=== PATIENT | male | born 1940 | race Caucasian/White ===

== ENCOUNTER 2019-03-29 17:43 | Inpatient (IN) | payer MEDICARE ==
[2019-03-29 20:34] VITALS: BMI 25.2
[2019-03-29] MEDS ORDERED: Acetaminophen 325 MG TAB PO PRN (21:04)
[2019-03-29] MEDS ORDERED: Albuterol Sulfate 2.5 mg/3 ml Neb NEB PRN (21:05)
[2019-03-29] MEDS ORDERED: Senokot S 8.6-50 MG TAB PO PRN (21:22)
[2019-03-29] MEDS ORDERED: PROVENTIL INH PRN ×2 (21:23→21:24)
[2019-03-29] MEDS: Doxycycline 100 MG CAP PO SCH (21:29)
[2019-03-29] MEDS: Atorvastatin Calcium 20 MG TAB PO SCH (21:29)
[2019-03-29] MEDS ORDERED: HYDROcodone/Acetaminophen 5/325 mg Tablet PO PRN (21:30)
[2019-03-29] MEDS ORDERED: hydrOXYzine Pamoate 25 mg Capsule PO PRN (21:31)
[2019-03-29] MEDS ORDERED: Rivaroxaban 10 MG TAB PO SCH (22:00)
[2019-03-29] MEDS: Budesonide 0.5 MG/2 ML NEB NEB SCH (22:24)
[2019-03-30] MEDS ORDERED: predniSONE 20 MG TAB PO SCH (08:00)
[2019-03-30] MEDS: Multivitamin W/ Minerals 1 TAB PO SCH (08:45)
[2019-03-30] MEDS: Doxycycline 100 MG CAP PO SCH ×2 (08:45→22:43)
[2019-03-30] MEDS: Cefdinir 300 MG CAP PO SCH (08:45)
[2019-03-30] MEDS: Potassium Chloride 10 MEQ TAB PO SCH ×2 (08:45→17:18)
[2019-03-30] MEDS: Finasteride 5 MG TAB PO SCH (08:45)
[2019-03-30] MEDS: Furosemide 40 MG TAB PO SCH (08:47)
[2019-03-30] MEDS ORDERED: Arformoterol 15 MCG/2 ML NEB NEB SCH (09:00)
[2019-03-30] MEDS: Budesonide 0.5 MG/2 ML NEB NEB SCH ×2 (09:28→22:48)
--- NOTE | 2019-03-30 10:58 | PRG ---
DATE OF SERVICE: SUBJECTIVE: The patient feels the same with stable dyspnea on minimal exertion but not at rest. Main complaint of inability to sleep last night and wished him to be transferred to a private room. Is having no chest pain or palpitations. Decreasing cough and sputum production. No lightheadedness or dizziness. OBJECTIVE: VITAL SIGNS: Temperature 97.1, pulse 92, respirations 22, O2 sats 93% on 4 L, and blood pressure 139/62. LUNGS: Show diffuse rhonchi with rare wheezes, decreased breath sounds. CARDIAC: Shows regular rhythm. No gallops or murmurs. ABDOMEN: Soft, nontender. SKIN/EXTREMITIES: Showed no edema, clubbing, or cyanosis. NEUROLOGIC: Intact. ASSESSMENT: 1. Severe chronic obstructive pulmonary disease with exacerbation, appears to be slowly improving on oral steroid taper, oral antibiotics and routine schedule nebulizers with DuoNeb. 2. History of multifocal atrial tachycardia with no evidence of exacerbation or symptomatology at this time. 3. History of pulmonary embolus, on full anticoagulation. 4. History of benign prostatic hyperplasia with no symptoms, on finasteride. PLAN: Start PT/OT when available. Continue routine steroid taper and oral antibiotics and chronic nebulizer treatments. monitor and need to transfer back to intensive unit as the patient is a full code and is on maximum non-ICU medications. Job ID: [id number]
--- NOTE | 2019-03-30 10:58 | HP ---
HISTORY OF PRESENT ILLNESS: The patient is an unfortunate 78-year-old white male with a long history of severe end-stage COPD and chronic respiratory failure, on 4 L home oxygen continually at home, increased to 5 L with any exercise, who presented to [facility] approximately 5 days ago with a 2-week history of increasing shortness of breath, sputum production of green phlegm, and chest pain. He was admitted with an exacerbation of his COPD, started on IV steroids, IV antibiotics, and regular handheld nebulizers with bronchodilators. He was seen by Pulmonary and by Cardiology as he was found to have possible atrial fib, but was later determined to be multifocal atrial tachycardia related to COPD, and he gradually improved and was transferred to the Swing Bed for further steroid taper, pulmonary toilet, and physical conditioning. The patient now is sitting up in the bed, states that he has no dyspnea at rest, but was unable to sleep last night, possibly due to his steroids, possibly due to his dyspnea. Having no chest pain or palpitation. Is having decreasing sputum production and wheezing. Is requesting routine DuoNebs every 4 hours as the Brovana did not appear to be holding him. He is on Omnicef and doxycycline antibiotics and is also on furosemide 40 mg daily. PAST MEDICAL HISTORY: Positive for the above-mentioned COPD, history of pulmonary embolism, benign prostatic hypertrophy, hypertension, prostate cancer, hyperlipidemia, chronic atrial fibrillation, hyperlipidemia. PAST SURGICAL HISTORY: Positive for lumbar laminectomy, bilateral knee surgery. ALLERGIES: HE IS ALLERGIC TO PENICILLIN, HYDROCHLOROTHIAZIDE. ADMISSION MEDICATIONS: Include 1. Xarelto 20 mg daily. 2. Prednisone taper, now on 40 mg daily. 3. Potassium chloride 10 mEq twice daily. 4. Protonix 40 daily. 5. Handheld nebulizers with DuoNeb p.r.n. every 4 hours. 6. Furosemide 40 daily. 7. Proscar 5 daily. 8. Doxycycline 100 twice daily. 9. Diltiazem 180 mg daily. 10. Omnicef 600 mg daily. 11. Pulmicort 0.5 twice daily. 12. Atorvastatin 20 nightly. 13. Tylenol as needed. SOCIAL HISTORY: He is a full code. He lives with his family. Former smoker; nonsmoker at this time. Nondrinker. FAMILY MEDICAL HISTORY: Positive for father dying of an SC, mother of cancer, and brother of an SC. Sister of COPD. REVIEW OF SYSTEMS: HEENT: Denies any headaches, dizziness, change in vision or hearing, hoarseness, or dysphagia. PULMONARY: Has chronic cough usually not productive of sputum, has dyspnea on minimal exertion, occasionally at rest. Has occasional chest pain. Has recurrent wheezing. CARDIOVASCULAR: Denies any chest pain. Does have occasional palpitations or syncope or dizziness. GASTROINTESTINAL: He denies nausea, vomiting, diarrhea, constipation, or abdominal pain. GENITOURINARY: Denies dysuria, hematuria, or nocturia but does have a decreased stream. MUSCULOSKELETAL: Denies stiffness, swelling in joints or extremities. PHYSICAL EXAMINATION: GENERAL: The patient is an elderly white male, sitting in the bed on oxygen, in mild respiratory distress while talking, who is oriented x3 and cooperative, alert, and lucid. VITAL SIGNS: Show him to have temperature 97.3, pulse 86, respirations 20, O2 sats 95% on 4 L, and blood pressure 152/66. HEENT: Pupils are equal, round, and reactive to light and accommodation. Sclerae anicteric. Conjunctivae pale. Oral mucous membranes well hydrated. NECK: Supple. JVP is not elevated. LUNGS: Show markedly decreased breath sounds with a few diffuse rhonchi with no wheezes. CARDIAC: Shows regular rhythm with occasional extrasystoles. PMI on the 5th intercostal space, midclavicular line. ABDOMEN: Soft, nontender with no masses or organomegaly. SKIN/EXTREMITIES: Displayed no edema, clubbing, or cyanosis. NEUROLOGIC: Showed no focal findings. LABORATORY DATA: Show sodium 139, potassium 3.7, chloride 94, bicarb 37, BUN 24, creatinine 0.92, glucose 147, calcium 10.0. White count 5900, hematocrit 40, hemoglobin 12.7. ASSESSMENT: 1. An 78-year-old white male with a history of end-stage chronic obstructive pulmonary disease with dyspnea on minimal exertion at baseline, it would present with dyspnea at rest with an exacerbation who had responded to IV steroids and antibiotics, appears to be improving, although still dyspneic on minimal exertion at this time. He also has a history of multifocal atrial tachycardia versus atrial fibrillation, which is treated with diltiazem. 2. History of pulmonary embolus in the past, prevented with Xarelto. 3. Benign prostatic hypertrophy, stable on finasteride. PLAN: 1. Continue PT/OT. 2. Continue 4 L oxygen. 3. Continue steroid tapers. 4. Continue doxycycline and Omnicef. 5. Continue routine DuoNebs q.4 hours and budesonide 0.5 twice daily. 6. Continue full code status at the patient's request. Job ID: [id number]
[2019-03-30] MEDS: Rivaroxaban 10 MG TAB PO SCH (17:17)
[2019-03-30] MEDS: Atorvastatin Calcium 20 MG TAB PO SCH (22:43)
[2019-03-31] MEDS ORDERED: Albuterol Sulfate 2.5 mg/0.5 ml Neb ONE (06:10)
[2019-03-31] MEDS ORDERED: Albuterol Sulfate 2.5 mg/3 ml Neb ONE (06:13)
[2019-03-31 08:20] LABS: #Eosinphils 0.1 thou/uL (0.0-0.7); #Lymphocytes 1.1 thou/uL (1.20-3.40); #Monocytes 1.1 thou/uL (0.11-0.59); #Neutrophils 8.2 thou/uL (1.40-6.50); %Basophils 0.3 % (0.0-1.0); %Eosinophils 0.7 % (0.0-10.0); %Lymphocytes 10.3 % (21.0-51.0); %Monocytes 10.1 % (0.0-10.0); %Neutrophils 78.6 % (42.0-75.0); Hemoglobin 11.9 g/dL (14.0-18.0); Mean Corpuscular HGB CONC 31.2 g/dL (32.0-36.0); Mean Corpuscular Hemoglobin 26.6 pg (27.0-31.0); Mean Corpuscular Volume 85.1 fL (78.0-98.0); Mean Platelet Volume 6.1 fL (7.4-10.4); Platelet Count 343 thou/uL (130-400); RBC Distribution Width 14.6 % (11.5-14.5); Red Blood Cell (RBC) Count 4.46 mill/uL (4.70-6.10); White Blood Cell (WBC) Count 10.5 thou/uL (4.8-10.8)
[2019-03-31 08:40] LABS: ALT (SGPT) 19 U/L (8-55); AST (SGOT) 21 U/L (5-34); Albumin 3.4 g/dL (3.4-4.8); Alkaline Phosphatase 60 U/L (40-150); BUN (Urea Nitrogen) 28 mg/dL (8.4-25.7); Bilirubin, Total 0.3 mg/dL (0.2-1.2); Calc. Creatinine Clearance 89 mL/min (70-130); Calcium 9.1 mg/dL (7.8-10.44); Estimated GFR-MDRD Greater than 90; Globulin 2.2 g/dL (2.4-3.5); Glucose 103 mg/dL (83-110); Protein, Total 5.6 g/dL (5.8-8.1)
[2019-03-31 08:44] LABS: Chloride 91 mmol/L (98-107); Potassium 3.8 mmol/L (3.5-5.1); Sodium 142 mmol/L (136-145)
[2019-03-31] MEDS: Finasteride 5 MG TAB PO SCH (09:04)
[2019-03-31] MEDS: Cefdinir 300 MG CAP PO SCH (09:04)
[2019-03-31] MEDS: Budesonide 0.5 MG/2 ML NEB NEB SCH ×2 (09:04→20:37)
[2019-03-31] MEDS: predniSONE 20 MG TAB PO SCH (09:05)
[2019-03-31] MEDS: Potassium Chloride 10 MEQ TAB PO SCH ×2 (09:06→17:22)
[2019-03-31] MEDS: Furosemide 40 MG TAB PO SCH (09:06)
[2019-03-31] MEDS: Multivitamin W/ Minerals 1 TAB PO SCH (09:07)
[2019-03-31 09:24] LABS: Carbon Dioxide 39 mmol/L (23-31)
[2019-03-31 09:25] LABS: Anion Gap 16 mmol/L (10-20)
[2019-03-31] MEDS: Rivaroxaban 10 MG TAB PO SCH (17:22)
[2019-03-31] MEDS: Atorvastatin Calcium 20 MG TAB PO SCH (20:36)
--- NOTE | 2019-03-31 22:06 | PRG ---
DATE OF SERVICE: 03/31/[address] Lauren Diana. SUBJECTIVE: The patient is an 78-year-old white male with severe COPD, multifocal atrial tachycardia, who has been admitted to [facility] unit for his physical therapy after an exacerbation of COPD. He is doing much better, tolerating his therapy well, and is enjoying his private room. He has had no further palpitations. He is having decreasing dyspnea, cough, and sputum production on his DuoNeb. OBJECTIVE: VITAL SIGNS: Show temperature is 97.9, pulse 76, respirations 22, O2 sats 97% on room air, blood pressure is 128/61. LUNGS: Show decreased breath sounds with few diffuse rhonchi. CARDIAC: Shows regular rhythm with occasional extrasystole. ABDOMEN: Soft and nontender. No masses or organomegaly. SKIN/EXTREMITIES: Show no edema, clubbing, or cyanosis. LABORATORY DATA: White count is 10,500, hematocrit 38, hemoglobin 11. Sodium is 142, potassium 3.8, chloride 91, bicarb 39, BUN is 28, creatinine 0.79, globulin 2.2. ASSESSMENT: 1. Severe chronic obstructive pulmonary disease with resolving exacerbation, on steroid taper, bronchodilators, and oral antibiotics. 2. History of multifocal atrial tachycardia, no recurrence. 3. History of pulmonary embolus, no recurrence, on full anticoagulation. 4. Benign prostatic hypertrophy, stable with no symptoms, on finasteride. PLAN: 1. Continue PT/OT. Continue handheld nebulizers with DuoNeb. 2. Continue to monitor for recurrent multifocal tachycardia. 3. Continue to monitor closely for deterioration as the patient is on maximum medications. Job ID: [id number]
[2019-04-01] MEDS: Budesonide 0.5 MG/2 ML NEB NEB SCH ×2 (08:46→20:20)
[2019-04-01] MEDS: Potassium Chloride 10 MEQ TAB PO SCH ×2 (08:49→17:44)
[2019-04-01] MEDS: Multivitamin W/ Minerals 1 TAB PO SCH (08:50)
[2019-04-01] MEDS: predniSONE 20 MG TAB PO SCH (08:50)
[2019-04-01] MEDS: Furosemide 40 MG TAB PO SCH (08:50)
[2019-04-01] MEDS: Finasteride 5 MG TAB PO SCH (08:50)
--- NOTE | 2019-04-01 14:02 | PRG ---
DATE OF SERVICE: 04/01/2019 SUBJECTIVE: Mr. Arriaza is up in his chair and denies any complaints. He has been moved to a private room and he is much more comfortable and happy. He states that his breathing is improving. He denies any PND or orthopnea. He is tolerating his medications. No family at bedside. OBJECTIVE: VITAL SIGNS: He is afebrile, heart rate 90, respirations 22, oxygen saturation 98% on 4 L, and blood pressure 128/76. CARDIOVASCULAR: S1 and S2 plus. RESPIRATORY: Normal vesicular breath sounds. Still with scattered rhonchi, occasional wheezing and decreased air entry at the bases. ABDOMEN: Soft and nontender. Bowel sounds heard in all quadrants. EXTREMITIES: Without cyanosis or clubbing. Does show trace edema. CENTRAL NERVOUS SYSTEM: Awake and responsive. Generalized weakness. LABORATORY VALUES: White count is 10.5, H and H are 11.9 and 38. Sodium 142, potassium 3.8, BUN and creatinine are 28 and 0.79. IMPRESSION: 1. Chronic obstructive pulmonary disease exacerbation, which is improving. 2. Chronic hypoxemic respiratory failure. 3. Atrial fibrillation. 4. Benign prostatic hypertrophy. 5. Dyslipidemia. 6. History of pulmonary embolism, on chronic anticoagulation. PLAN: 1. Continue current medications. 2. Heart healthy diet. 3. Titrate oxygen as tolerated to baseline. 4. Handheld nebulizer treatment. 5. Monitor respiratory status. 6. DVT prophylaxis-the patient is under Xarelto. 7. Decubitus precautions. 8. Stress ulcer prophylaxis. 9. Physical therapy. 10. Routine laboratory values. 11. Discussed with the patient in detail and all questions answered. Job ID: [id number]
[2019-04-01] MEDS: Rivaroxaban 10 MG TAB PO SCH (17:44)
[2019-04-01] MEDS: Atorvastatin Calcium 20 MG TAB PO SCH (20:20)
[2019-04-02] MEDS: Furosemide 40 MG TAB PO SCH (09:04)
[2019-04-02] MEDS: Potassium Chloride 10 MEQ TAB PO SCH ×2 (09:04→17:31)
[2019-04-02] MEDS: predniSONE 20 MG TAB PO SCH (09:04)
[2019-04-02] MEDS: Multivitamin W/ Minerals 1 TAB PO SCH (09:04)
[2019-04-02] MEDS: Budesonide 0.5 MG/2 ML NEB NEB SCH ×2 (09:05→20:24)
[2019-04-02] MEDS: Finasteride 5 MG TAB PO SCH (09:06)
--- NOTE | 2019-04-02 14:03 | PRG ---
DATE OF SERVICE: 04/02/2019 SUBJECTIVE: Mr. Arriaza is doing well, except he states that he is not sleeping well and he would like something for sleep. He states that his breathing seems to be improving. He is tolerating his tapering dose of steroids. OBJECTIVE: VITAL SIGNS: He is afebrile. Heart rate is 66, respirations 22, and oxygen saturation 99% on 4 L. CARDIOVASCULAR SYSTEM: S1 and S2 plus. RESPIRATORY SYSTEM: Normal vesicular breath sounds. ABDOMEN: Soft and nontender. Bowel sounds heard in all quadrants. EXTREMITIES: Without cyanosis or clubbing. Trace edema. CENTRAL NERVOUS SYSTEM: Awake and responsive. Generalized weakness. IMPRESSION: 1. Resolving chronic obstructive pulmonary disease exacerbation. 2. Atrial fibrillation. 3. Chronic hypoxemic respiratory failure. 4. Benign prostatic hypertrophy. 5. Dyslipidemia. 6. Deconditioning. 7. Insomnia. PLAN: 1. Continue current medications with trial of trazodone 50 mg at bedtime. 2. Heart healthy diet. 3. Titrate oxygen. 4. DVT prophylaxis, he is on Xarelto. 5. Decubitus precautions. 6. Stress ulcer prophylaxis. 7. Physical therapy. 8. Routine laboratory values. 9. Discussed with the patient in detail and all questions answered. Job ID: [id number]
[2019-04-02] MEDS: Rivaroxaban 10 MG TAB PO SCH (17:31)
[2019-04-02] MEDS: traZODone HCl 50 MG TAB PO SCH (20:24)
[2019-04-02] MEDS: Atorvastatin Calcium 20 MG TAB PO SCH (20:24)
[2019-04-03] MEDS: Finasteride 5 MG TAB PO SCH (08:31)
[2019-04-03] MEDS: predniSONE 20 MG TAB PO SCH (08:31)
[2019-04-03] MEDS: Potassium Chloride 10 MEQ TAB PO SCH ×2 (08:31→16:45)
[2019-04-03] MEDS: Multivitamin W/ Minerals 1 TAB PO SCH (08:31)
[2019-04-03] MEDS: Furosemide 40 MG TAB PO SCH (08:31)
[2019-04-03] MEDS: Budesonide 0.5 MG/2 ML NEB NEB SCH ×2 (08:32→20:46)
--- NOTE | 2019-04-03 13:00 | PRG ---
DATE OF SERVICE: 04/03/2019 SUBJECTIVE: Mr. Arriaza apparently slept well with trazodone. He is up in bed, eating lunch. He states that he is improving and he thinks he is ready to go home. We will discuss with nursing. OBJECTIVE: VITAL SIGNS: He is afebrile. Heart rate is 88, respirations 24, oxygen saturation 98% on 4 L, blood pressure is 144/59. CARDIOVASCULAR: S1 and S2 plus. RESPIRATORY: Normal vesicular breath sounds. ABDOMEN: Soft, nontender. Bowel sounds heard in all quadrants. EXTREMITIES: 1+ edema. CENTRAL NERVOUS SYSTEM: Awake and responsive. Generalized weakness. Grossly nonfocal. IMPRESSION: 1. Resolving chronic obstructive pulmonary disease exacerbation. 2. Atrial fibrillation. 3. Benign prostatic hypertrophy. 4. Dyslipidemia. 5. Resolved insomnia. 6. Cor pulmonale. PLAN: 1. Continue current medications. 2. Heart healthy diet. 3. Monitor respiratory status. 4. Physical therapy. 5. Deep venous thrombosis prophylaxis - he is on Xarelto. 6. Monitor heart rate and rhythm. 7. Hypertension. Continue trazodone. 8. Routine laboratory values. Continue therapy. Job ID: [id number]
[2019-04-03] MEDS: Rivaroxaban 10 MG TAB PO SCH (17:05)
[2019-04-03] MEDS: traZODone HCl 50 MG TAB PO SCH (20:46)
[2019-04-03] MEDS: Atorvastatin Calcium 20 MG TAB PO SCH (20:46)
[2019-04-04] MEDS: Furosemide 40 MG TAB PO SCH (08:03)
[2019-04-04] MEDS: Multivitamin W/ Minerals 1 TAB PO SCH (08:03)
[2019-04-04] MEDS: Potassium Chloride 10 MEQ TAB PO SCH ×2 (08:03→17:08)
[2019-04-04] MEDS: predniSONE 20 MG TAB PO SCH (08:04)
[2019-04-04] MEDS: Finasteride 5 MG TAB PO SCH (08:04)
[2019-04-04] MEDS: Budesonide 0.5 MG/2 ML NEB NEB SCH ×2 (08:42→20:56)
--- NOTE | 2019-04-04 13:04 | PRG ---
DATE OF SERVICE: 04/04/2019 SUBJECTIVE: Mr. Arriaza is doing well. Ambulating in the hallways. He states that he is pretty much back to his baseline. He would like to go home at least tomorrow. He says that no therapies on the weekend, ambulating here back from therapy. Medications are the same, no change. He is his back to his baseline oxygen level oxygen requirement, which is 4 L. OBJECTIVE: VITAL SIGNS: He is afebrile. Heart rate 97, respirations 22, oxygen saturation 97% on 4 L, and blood pressure 142/66. CARDIOVASCULAR SYSTEM: S1 and S2 plus. RESPIRATORY SYSTEMS: Normal vesicular sounds. Decreased air entry in the bases and scattered rhonchi. ABDOMEN: Soft, nontender, bowel sounds heard in all quadrants. EXTREMITIES: Without cyanosis or clubbing. Trace edema. CENTRAL NERVOUS SYSTEM: Awake and responsive, generalized weakness. IMPRESSION: 1. Improving chronic obstructive pulmonary disease exacerbation. 2. Atrial fibrillation. 3. Cor pulmonale with lower extremity edema. 4. Chronic hypoxemic respiratory failure. 5. Benign prostatic hypertrophy. 6. Dyslipidemia. 7. Insomnia. PLAN: 1. Continue current medications. 2. Heart healthy diet. 3. Monitor respiratory status. 4. Breathing treatments. 5. Physical therapy. 6. DVT prophylaxis. He is on Xarelto. 7. Discharge planning. 8. Discussed with the patient in detail. All questions were answered. No family at bedside. Job ID: [id number]
[2019-04-04] MEDS: Rivaroxaban 10 MG TAB PO SCH (17:09)
[2019-04-04] MEDS: traZODone HCl 50 MG TAB PO SCH (20:58)
[2019-04-04] MEDS: Atorvastatin Calcium 20 MG TAB PO SCH (20:58)
[2019-04-05] MEDS: Budesonide 0.5 MG/2 ML NEB NEB SCH (07:33)
[2019-04-05] MEDS: Finasteride 5 MG TAB PO SCH (07:35)
[2019-04-05] MEDS: Multivitamin W/ Minerals 1 TAB PO SCH (07:36)
[2019-04-05] MEDS: Potassium Chloride 10 MEQ TAB PO SCH (07:36)
[2019-04-05] MEDS: predniSONE 20 MG TAB PO SCH (07:36)
[2019-04-05] MEDS: Furosemide 40 MG TAB PO SCH (07:36)
[2019-04-05 07:46] VITALS: BP 157/63; TEMP 98
--- NOTE | 2019-04-05 14:36 | DIS ---
DATE OF ADMISSION: 03/29/2019 DATE OF DISCHARGE: 04/05/2019 HOSPITAL COURSE: Mr. Arriaza is a very pleasant 78-year-old white male, with a long history of severe end-stage COPD. He has had chronic respiratory failure along with multifocal atrial tachycardia versus atrial fibrillation. He has had a pulmonary embolus in the past and is now on Xarelto. He has BPH and is stable. He has responded very well to IV steroids, he is back to his baseline and is ready to go home. DISCHARGE MEDICATIONS: Revealed the patient is ready to go home on the following medications, which include: 1. Albuterol q.i.d. scheduled and q.4 p.r.n. 2. Atorvastatin 20 mg at bedtime. 3. Pulmicort neb solution b.i.d. scheduled. 4. Diltiazem 180 mg every evening at 6. 5. Proscar 5 mg daily. 6. Lasix 40 mg daily. 7. Theragran-M daily. 8. Protonix 40 scheduled daily. 9. Proventil inhaler two puffs q.4 p.r.n. rescue inhalers for wheezing. 10. Potassium chloride 10 mEq twice a day. 11. Prednisone taper, presently at 20 mg and 10 mg for 4 more days. 12. Xarelto 20 mg daily. 13. Trazodone 50 mg at bedtime. OBJECTIVE: VITAL SIGNS: Reveal blood pressure 157/63, pulse 82 to 92, respirations 22 to 28, and oxygen saturation 94% to 96% on 4 L flow. GENERAL: This is a well-developed, well-nourished, 78-year-old white male, in no apparent distress at this time. HEENT: Reveals normocephalic and nontraumatic cranium. Pupils are equal, round, and reactive. Extraocular movements are intact. Nose and throat are dry. NECK: Supple without masses, nodes, or bruits. CHEST: Reveals decreased breath sounds at the bases with continued scattered rhonchi, but apparently much improved. Breath sounds are distant, but some air movement is noted. HEART: Reveals a regular rate and rhythm without murmurs, gallops, or rubs. ABDOMEN: Soft and nontender without organomegaly. Normal bowel sounds in all 4 quadrants. GENITOURINARY: Exam is deferred. EXTREMITIES: Reveal no clubbing or cyanosis with trace edema. The patient is oriented to person, place, and time. IMPRESSION: 1. End-stage chronic obstructive pulmonary disease with exacerbation, much improved. 2. Atrial fibrillation. 3. Cor pulmonale with lower extremity edema. 4. Chronic hypoxic respiratory failure. 5. Benign prostatic hyperplasia. 6. Hyperlipidemia. 7. Insomnia. 8. Generalized weakness. PLAN: 1. The patient is ready for discharge. 2. The patient will follow up with his primary care doctor within the next couple of weeks. 3. Continue DVT prophylaxis with Xarelto. 4. Home health. 5. The patient has his prescriptions already called into [facility] by Dr. Diana. 6. The patient is ready for discharge. I spent more than 30 minutes in coordinating care for this patient's discharge and going over his medicines and discussing his care with his grandson and himself. Job ID: [id number]
[2019-04-08] MEDS ORDERED: predniSONE 10 MG TAB PO SCH (08:00)
== END 2019-04-05 10:34 | disposition home health service (06) | DRG 191 ==
LOC: NAV ACUTE 17:43
PROVIDERS: ADMIT Internal Medicine; ATTEND Internal Medicine
DX: J44.1 Chronic obstructive pulmonary disease with (acute) exacerbation (principal); J96.11 Chronic respiratory failure with hypoxia; N40.0 Benign prostatic hyperplasia without lower urinary tract symptoms; I10 Essential (primary) hypertension; E78.5 Hyperlipidemia, unspecified; I48.2 Chronic atrial fibrillation; G47.00 Insomnia, unspecified; I27.81 Cor pulmonale (chronic); Z99.81 Dependence on supplemental oxygen; Z86.711 Personal history of pulmonary embolism; Z85.46 Personal history of malignant neoplasm of prostate; Z79.01 Long term (current) use of anticoagulants; Z79.52 Long term (current) use of systemic steroids; Z79.899 Other long term (current) drug therapy; Z87.891 Personal history of nicotine dependence
CPT/HCPCS: 36415; 80053; 85025; 94640; J7512; J7611; J7620; J7626

== ENCOUNTER 2019-10-07 17:49 | Inpatient (IN) | payer MEDICARE ==
[2019-10-07] MEDS ORDERED: Benzonatate 100 MG CAP PO PRN (18:57)
[2019-10-07] MEDS: predniSONE 20 MG TAB PO SCH (21:16)
[2019-10-07] MEDS: Furosemide 40 MG TAB PO SCH (21:16)
[2019-10-07] MEDS: Atorvastatin Calcium 20 MG TAB PO SCH (21:16)
[2019-10-07] MEDS: AcetaZOLAMIDE 250 MG TAB PO SCH (21:17)
[2019-10-07] MEDS: Finasteride 5 MG TAB PO SCH (21:17)
[2019-10-07] MEDS: Budesonide 0.5 MG/2 ML NEB NEB SCH (21:34)
[2019-10-08 05:43] LABS: #Basophils 0.1 thou/uL (0.0-0.2); #Lymphocytes 0.2 thou/uL (1.20-3.40); #Monocytes 0.6 thou/uL (0.11-0.59); #Neutrophils 12.1 thou/uL (1.40-6.50); %Basophils 0.6 % (0.0-1.0); %Eosinophils 0.1 % (0.0-10.0); %Lymphocytes 1.4 % (21.0-51.0); %Monocytes 4.7 % (0.0-10.0); %Neutrophils 93.3 % (42.0-75.0); Hemoglobin 9.7 g/dL (14.0-18.0); Mean Corpuscular HGB CONC 30.5 g/dL (32.0-36.0); Mean Corpuscular Hemoglobin 26.1 pg (27.0-31.0); Mean Corpuscular Volume 85.7 fL (78.0-98.0); Mean Platelet Volume 6.2 fL (7.4-10.4); Platelet Count 390 thou/uL (130-400); RBC Distribution Width 16.2 % (11.5-14.5); Red Blood Cell (RBC) Count 3.71 mill/uL (4.70-6.10)
[2019-10-08 05:55] LABS: Anion Gap 11 mmol/L (10-20); BUN (Urea Nitrogen) 24 mg/dL (8.4-25.7); Calc. Creatinine Clearance 87 mL/min (70-130); Calcium 8.5 mg/dL (7.8-10.44); Carbon Dioxide 35 mmol/L (23-31); Chloride 95 mmol/L (98-107); Estimated GFR-MDRD Greater than 90; Glucose 129 mg/dL (83-110); Potassium 4.1 mmol/L (3.5-5.1); Sodium 137 mmol/L (136-145)
[2019-10-08] MEDS ORDERED: Prevnar 13-Val Conj/PF 0.5 ML SYRINGE IM ONE (09:00)
[2019-10-08] MEDS: Digoxin 0.125 MG TAB PO SCH (09:36)
[2019-10-08] MEDS: Rivaroxaban 10 MG TAB PO SCH (09:36)
[2019-10-08] MEDS: AcetaZOLAMIDE 250 MG TAB PO SCH ×3 (09:36→20:51)
[2019-10-08] MEDS: Furosemide 40 MG TAB PO SCH ×2 (09:37→20:52)
[2019-10-08] MEDS: predniSONE 20 MG TAB PO SCH ×2 (09:37→20:52)
[2019-10-08] MEDS: Aspirin Chewable 81 MG TAB PO SCH (09:37)
[2019-10-08] MEDS: Budesonide 0.5 MG/2 ML NEB NEB SCH ×2 (09:39→20:51)
--- NOTE | 2019-10-08 14:16 | HP ---
PRINCIPAL DIAGNOSES: Exacerbation of chronic obstructive pulmonary disease and congestive heart failure, here for therapy. BRIEF HISTORY: This is a very pleasant 79-year-old male, who is well known to me, presents to the hospital in [place] with difficulty breathing. He was noted to be in decompensated heart failure with poorly-controlled atrial fibrillation and was started on a Cardizem drip. He was also started on IV diuretics as well as IV steroids. X-ray also showed right infrahilar mass, and the patient apparently is scheduled [facility]. He was do not resuscitate at the hospital, but right now, the patient states that he wants everything done. The patient is mentally competent to make his own decisions. He has improved sufficiently that he is now on oral antibiotics. He was also started on acetazolamide for his metabolic alkalosis and mainly here for therapy. He is up in his chair and denies any complaints. He states that he is breathing much easier. He is sleeping reasonably well. Apparently, he did not like the bed, so he slept on the floor last night. We are trying to get him a recliner, which he usually likes. PHYSICAL EXAMINATION: VITAL SIGNS: He is afebrile. Heart rate 86, respirations 20, oxygen saturation 98% on 4 L, blood pressure 112/51. CARDIOVASCULAR: S1 and S2 plus. Irregularly irregular. RESPIRATORY: Normal vesicular breath sounds with crackles in the bases and occasional rhonchi. ABDOMEN: Soft and nontender. Bowel sounds heard in all quadrants. EXTREMITIES: Without cyanosis or clubbing. He has about 3+ pitting edema. CENTRAL NERVOUS SYSTEM: Awake and responsive. Cranial nerves 2 through 12 intact. Generalized weakness. Otherwise, nonfocal. LABORATORY DATA: Laboratory values done this morning show a white count of 13, H and H are 9.7 and 31.8. Sodium 137, potassium 4.1, BUN and creatinine are 24 and 0.73, CO2 is 35. IMPRESSION: 1. Resolving chronic obstructive pulmonary disease exacerbation. 2. 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 3. Metabolic alkalosis. 4. Dyslipidemia. 5. Right hilar mass. 6. Atrial fibrillation with controlled heart rate. 7. Qntkt-kr-[id number] hypoxemic respiratory failure. 8. Deconditioning. PLAN: 1. Continue current medications. 2. Taper prednisone. 3. Monitor heart rate and rhythm. 4. Heart-healthy diet. 5. Titrate oxygen as tolerated to his baseline level. 6. Breathing treatments. 7. Physical therapy. PT/OT eval and treat. 8. Routine laboratory values. 9. DVT prophylaxis - the patient is on Xarelto. 10. Stress ulcer prophylaxis. 11. Decubitus precautions. 12. The patient wants to be a full code. Job ID: [id number]
[2019-10-08] MEDS: Atorvastatin Calcium 20 MG TAB PO SCH (20:51)
[2019-10-08] MEDS: Finasteride 5 MG TAB PO SCH (20:52)
[2019-10-08] MEDS ORDERED: Melatonin 3 MG TAB PO PRN (21:42)
[2019-10-09] MEDS: Aspirin Chewable 81 MG TAB PO SCH (10:19)
[2019-10-09] MEDS: Rivaroxaban 10 MG TAB PO SCH (10:19)
[2019-10-09] MEDS: Furosemide 40 MG TAB PO SCH ×2 (10:20→20:23)
[2019-10-09] MEDS: AcetaZOLAMIDE 250 MG TAB PO SCH ×3 (10:20→20:23)
[2019-10-09] MEDS: Budesonide 0.5 MG/2 ML NEB NEB SCH ×2 (10:20→20:23)
[2019-10-09] MEDS: predniSONE 20 MG TAB PO SCH ×2 (10:20→20:23)
[2019-10-09] MEDS: Digoxin 0.125 MG TAB PO SCH (10:20)
--- NOTE | 2019-10-09 12:36 | PRG ---
DATE OF SERVICE: 10/09/2019 SUBJECTIVE: Mr. Arriaza is up in bed. He states that he did not sleep well and the melatonin did not help. He denies any other concerns or questions. OBJECTIVE: VITAL SIGNS: He is afebrile. Heart rate is 84, respirations 20, oxygen saturation 98% on 4 L, blood pressure 126/59. CARDIOVASCULAR: S1 and S2 plus. Rate and rhythm are irregularly irregular. RESPIRATORY: Normal vesicular breath sounds with scattered rhonchi and decreased air entry in the bases. ABDOMEN: Soft and nontender. Bowel sounds heard in all quadrants. EXTREMITIES: Without cyanosis or clubbing. 2+ edema. CENTRAL NERVOUS SYSTEM: Improving deconditioning. IMPRESSION: 1. Exacerbation of chronic obstructive pulmonary disease, improving. 2. Vuktf-gb-xoccsvh congestive heart failure, likely combined, improving. 3. Metabolic alkalosis. 4. Lung and possible adrenal/kidney mass. 5. History of deep venous thrombosis and pulmonary embolism. 6. Atrial fibrillation. 7. Deconditioning. 8. Insomnia. PLAN: 1. Continue current medications. 2. Heart-healthy diet. 3. Monitor respiratory status and breathing treatments as needed. 4. Titrate oxygen as tolerated. 5. Monitor heart rate and rhythm. 6. DVT prophylaxis - the patient is on anticoagulation. 7. Decubitus precautions. 8. Stress ulcer prophylaxis. 9. Trial of trazodone 50 mg at bedtime. 10. Continue therapy. Job ID: [id number]
[2019-10-09] MEDS: Atorvastatin Calcium 20 MG TAB PO SCH (20:23)
[2019-10-09] MEDS: Finasteride 5 MG TAB PO SCH (20:23)
[2019-10-09] MEDS: traZODone HCl 50 MG TAB PO SCH (20:24)
[2019-10-10] MEDS: Budesonide 0.5 MG/2 ML NEB NEB SCH ×2 (08:45→20:14)
[2019-10-10] MEDS: Furosemide 40 MG TAB PO SCH ×2 (08:46→20:14)
[2019-10-10] MEDS: predniSONE 20 MG TAB PO SCH ×2 (08:46→20:15)
[2019-10-10] MEDS: Aspirin Chewable 81 MG TAB PO SCH (08:46)
[2019-10-10] MEDS: Digoxin 0.125 MG TAB PO SCH (08:46)
[2019-10-10] MEDS: AcetaZOLAMIDE 250 MG TAB PO SCH ×3 (08:46→20:14)
[2019-10-10] MEDS: Rivaroxaban 10 MG TAB PO SCH (08:46)
--- NOTE | 2019-10-10 13:46 | PRG ---
DATE OF SERVICE: 10/10/2019 SUBJECTIVE: Mr. Arriaza apparently slept better yesterday. He did get his recliner and he is happy. He states he is not able to chew his food due to bad teeth and he would like to be switched to a mechanically soft diet. He states that his breathing is improving and he feels better. No family at bedside. OBJECTIVE: VITAL SIGNS: He is afebrile, heart rate 86, respirations 20, oxygen saturation 93% on 4 L, and blood pressure is 123/56. CARDIOVASCULAR: S1 and S2 plus. RESPIRATORY: Normal vesicular breath sounds. ABDOMEN: Soft, nontender. Bowel sounds all quadrants. EXTREMITIES: Without cyanosis, clubbing. 2+ edema. IMPRESSION: 1. Resolving asfhs-wc-mkxepfb systolic congestive heart failure. 2. Resolving chronic obstructive pulmonary disease exacerbation. 3. Deconditioning. 4. History of deep venous thrombosis and pulmonary embolism. 5. Atrial fibrillation. 6. Metabolic alkalosis, chronic. 7. Dyslipidemia. 8. Right hilar mass. PLAN: 1. Continue current medications. 2. Nutritional support with heart healthy diet. 3. Monitor respiratory status. 4. DVT prophylaxis with Xarelto. 5. Decubitus precautions. 6. Physical therapy. 7. Titrate oxygen. 8. Monitor respiratory status. 9. Discussed with the patient and family in detail. 10. Switch him to mechanically soft diet. Job ID: [id number]
[2019-10-10] MEDS: Finasteride 5 MG TAB PO SCH (20:14)
[2019-10-10] MEDS: Atorvastatin Calcium 20 MG TAB PO SCH (20:14)
[2019-10-10] MEDS: traZODone HCl 50 MG TAB PO SCH (20:15)
[2019-10-11 05:37] LABS: BUN (Urea Nitrogen) 29 mg/dL (8.4-25.7); Calc. Creatinine Clearance 77 mL/min (70-130); Calcium 8.1 mg/dL (7.8-10.44); Estimated GFR-MDRD Greater than 90; Glucose 108 mg/dL (83-110)
[2019-10-11 05:39] LABS: Band 7 % (5-11); Digoxin 0.72 ng/mL (0.8-2.0); Hemoglobin 8.8 g/dL (14.0-18.0); Hypochromia SLIGHT = 6-15 cells (100X) (0-5/hpf); Lymphocytes 4 % (21-51); MDiff Complete? YES; Mean Corpuscular HGB CONC 31.6 g/dL (32.0-36.0); Mean Corpuscular Hemoglobin 26.8 pg (27.0-31.0); Mean Corpuscular Volume 84.8 fL (78.0-98.0); Mean Platelet Volume 5.9 fL (7.4-10.4); Monocytes 1 % (0-10); Neutrophil 88 % (42-75); Platelet Count 306 thou/uL (130-400); Platelet Morphology Comment Appears Adequate; RBC Distribution Width 16.5 % (11.5-14.5); Red Blood Cell (RBC) Count 3.26 mill/uL (4.70-6.10); Stomatocytes SLIGHT = 2-5 cells (100X) (0-1/hpf); White Blood Cell (WBC) Count 15.5 thou/uL (4.8-10.8)
[2019-10-11 05:41] LABS: Chloride 87 mmol/L (98-107); Potassium 3.4 mmol/L (3.5-5.1); Sodium 137 mmol/L (136-145)
[2019-10-11 06:10] LABS: Carbon Dioxide 36 mmol/L (23-31)
[2019-10-11 06:17] LABS: Anion Gap 11 mmol/L (10-20)
[2019-10-11] MEDS: Potassium Chloride 20 MEQ TAB PO SCH (08:36)
--- NOTE | 2019-10-11 08:58 | PRG ---
DATE OF SERVICE: 10/11/2019 SUBJECTIVE: Mr. Arriaza is sitting on the side of his bed. He apparently slept reasonably well. He denies any questions or concerns except some soreness in his sacral region. I advised him that it mostly is because of him sitting most of the time or sleeping on the recliner. He really needs to give some pressure relief by lying on his side. No open areas, but I advised him that I will have nursing examine him. He is right now having breakfast, so I did not want to bother him. OBJECTIVE: VITAL SIGNS: He is afebrile. Heart rate 100, respirations 18, oxygen saturation 94% on 4 L, and blood pressure 115/55. CARDIOVASCULAR SYSTEM: S1 and S2 plus. RESPIRATORY SYSTEM: Normal vesicular breath sounds. ABDOMEN: Soft and nontender. Bowel sounds heard in all quadrants. EXTREMITIES: Without cyanosis or clubbing. CENTRAL NERVOUS SYSTEM: Grossly nonfocal. LABORATORY DATA: Sodium 137, potassium slightly low at 3.4, BUN and creatinine are 29 and 0.77. White count is 15.5, hemoglobin and hematocrit are 8.8 and 27.7. IMPRESSION: 1. Resolving exacerbation of chronic obstructive pulmonary disease. 2. Resolving acute on chronic congestive heart failure, likely systolic. 3. Chronic hypoxemic respiratory failure. 4. Atrial fibrillation. 5. Lung and kidney mass, possible cancer. 6. Benign prostatic hypertrophy. PLAN: 1. Continue current medications. 2. Heart healthy diet. 3. Leukocytosis, likely due to steroids. He is on Levaquin and no clinical signs of worsening infection. 4. Replace potassium. 5. DVT prophylaxis - the patient is on Xarelto. 6. Decubitus precautions. I reinforced the patient to give pressure relief to his back. 7. Continue therapy. 8. Routine laboratory values. 9. He is scheduled for a PET scan, I think early next week. I advised him that we will give him a pass to go get it done, it is done at the [facility]. No family at bedside. Job ID: [id number]
[2019-10-11] MEDS: Budesonide 0.5 MG/2 ML NEB NEB SCH ×2 (09:29→21:10)
[2019-10-11] MEDS: AcetaZOLAMIDE 250 MG TAB PO SCH ×3 (09:31→21:07)
[2019-10-11] MEDS: Rivaroxaban 10 MG TAB PO SCH (09:31)
[2019-10-11] MEDS: Furosemide 40 MG TAB PO SCH ×2 (09:31→21:07)
[2019-10-11] MEDS: Aspirin Chewable 81 MG TAB PO SCH (09:32)
[2019-10-11] MEDS: Digoxin 0.125 MG TAB PO SCH (09:33)
[2019-10-11] MEDS: predniSONE 20 MG TAB PO SCH ×2 (09:33→21:06)
[2019-10-11] MEDS: Atorvastatin Calcium 20 MG TAB PO SCH (21:07)
[2019-10-11] MEDS: traZODone HCl 50 MG TAB PO SCH (21:07)
[2019-10-11] MEDS: Finasteride 5 MG TAB PO SCH (21:07)
[2019-10-12] MEDS: Potassium Chloride 20 MEQ TAB PO SCH ×2 (08:51→16:49)
[2019-10-12] MEDS: Digoxin 0.125 MG TAB PO SCH (08:52)
[2019-10-12] MEDS: AcetaZOLAMIDE 250 MG TAB PO SCH ×3 (08:52→20:58)
[2019-10-12] MEDS: Budesonide 0.5 MG/2 ML NEB NEB SCH ×2 (08:52→21:17)
[2019-10-12] MEDS: Rivaroxaban 10 MG TAB PO SCH (08:53)
[2019-10-12] MEDS: predniSONE 20 MG TAB PO SCH (08:53)
[2019-10-12] MEDS: Aspirin Chewable 81 MG TAB PO SCH (08:53)
[2019-10-12] MEDS: Furosemide 40 MG TAB PO SCH ×2 (08:53→20:58)
--- NOTE | 2019-10-12 16:03 | PRG ---
DATE OF SERVICE: 10/12/2019 SUBJECTIVE: Mr. Arriaza is up in his chair. He had his legs wrapped. He denies any questions or concerns. His sister is in the room. OBJECTIVE: VITAL SIGNS: He is afebrile. Heart rate 90, respirations 23, oxygen saturation 95% on 4 L, blood pressure 109/57. CARDIOVASCULAR: S1-S2 plus. RESPIRATORY: Normal vesicular breath sounds with decreased air entry in the bases and prolonged expiratory phase. Scattered rhonchi. ABDOMEN: Soft. Nontender. Bowel sounds heard in all quadrants. EXTREMITIES: Without cyanosis, clubbing, 2+ edema. CENTRAL NERVOUS SYSTEM: Awake and responsive. Generalized weakness, otherwise nonfocal. IMPRESSION: 1. Acute on chronic systolic congestive heart failure. 2. Chronic hypoxemic respiratory failure. 3. Improving exacerbation of chronic obstructive pulmonary disease. 4. Atrial fibrillation. 5. Possible lung and kidney mass, scheduled for PET scan next week. 6. Deconditioning. 7. Benign prostatic hypertrophy. PLAN: 1. Continue current medications. 2. Heart healthy diet. 3. Titrate oxygen as tolerated. 4. DVT prophylaxis-he is on Xarelto. 5. Decubitus precautions. 6. Stress ulcer prophylaxis. 7. Routine laboratory values. 8. Physical therapy. Job ID: [id number]
[2019-10-12] MEDS: Atorvastatin Calcium 20 MG TAB PO SCH (20:58)
[2019-10-12] MEDS: traZODone HCl 50 MG TAB PO SCH (20:58)
[2019-10-12] MEDS: Finasteride 5 MG TAB PO SCH (20:58)
[2019-10-13] MEDS: Potassium Chloride 20 MEQ TAB PO SCH ×2 (08:30→17:39)
[2019-10-13] MEDS: AcetaZOLAMIDE 250 MG TAB PO SCH ×3 (08:31→20:59)
[2019-10-13] MEDS: Budesonide 0.5 MG/2 ML NEB NEB SCH ×2 (08:31→21:22)
[2019-10-13] MEDS: Aspirin Chewable 81 MG TAB PO SCH (08:31)
[2019-10-13] MEDS: Digoxin 0.125 MG TAB PO SCH (08:34)
[2019-10-13] MEDS: Furosemide 40 MG TAB PO SCH ×2 (08:34→20:59)
[2019-10-13] MEDS: predniSONE 20 MG TAB PO SCH (08:35)
[2019-10-13] MEDS: Rivaroxaban 10 MG TAB PO SCH (08:35)
--- NOTE | 2019-10-13 15:42 | PRG ---
DATE OF SERVICE: 10/13/2019 SUBJECTIVE: Mr. Arriaza is up in his recliner. He denies any questions or concerns. He states that he is doing the same. No family at bedside. OBJECTIVE: VITAL SIGNS: He is afebrile. Heart rate is 93, respirations 22, oxygen saturation 99% on 4 L, and blood pressure 144/64. CARDIOVASCULAR SYSTEM: S1 and S2 plus. RESPIRATORY SYSTEM: Normal vesicular breath sounds. ABDOMEN: Soft, nontender. Bowel sounds heard in all quadrants. EXTREMITIES: Without cyanosis, clubbing, 2+ edema. IMPRESSION: 1. Improving COPD exacerbation. 2. Resolving acute on chronic systolic congestive heart failure. 3. Chronic hypoxemic respiratory failure. 4. Atrial fibrillation. 5. Benign prostatic hypertrophy. 6. Lung and kidney mass scheduled for PET scan. PLAN: 1. Continue current medications. 2. Heart healthy diet. 3. Breathing treatments as needed. 4. Monitor respiratory status. 5. DVT prophylaxis-he is on Xarelto. 6. Decubitus precaution. 7. Stress ulcer prophylaxis. 8. Physical therapy. Job ID: [id number]
[2019-10-13] MEDS: Atorvastatin Calcium 20 MG TAB PO SCH (20:59)
[2019-10-13] MEDS: Finasteride 5 MG TAB PO SCH (20:59)
[2019-10-13] MEDS: traZODone HCl 50 MG TAB PO SCH (20:59)
[2019-10-14 05:28] LABS: Hemoglobin 8.3 g/dL (14.0-18.0); Platelet Count 259 thou/uL (130-400)
[2019-10-14 05:29] VITALS: BMI 21.8
[2019-10-14 05:45] LABS: Calc. Creatinine Clearance 81 mL/min (70-130); Estimated GFR-MDRD Greater than 90
[2019-10-14] MEDS: Aspirin Chewable 81 MG TAB PO SCH (08:28)
[2019-10-14] MEDS: Budesonide 0.5 MG/2 ML NEB NEB SCH ×2 (08:28→20:41)
[2019-10-14] MEDS: Digoxin 0.125 MG TAB PO SCH (08:28)
[2019-10-14] MEDS: Furosemide 40 MG TAB PO SCH ×2 (08:29→20:41)
[2019-10-14] MEDS: AcetaZOLAMIDE 250 MG TAB PO SCH ×3 (08:29→20:41)
[2019-10-14] MEDS: Potassium Chloride 20 MEQ TAB PO SCH ×2 (08:29→17:30)
[2019-10-14] MEDS: Rivaroxaban 10 MG TAB PO SCH (08:29)
[2019-10-14] MEDS: predniSONE 20 MG TAB PO SCH (08:29)
--- NOTE | 2019-10-14 13:04 | PRG ---
DATE OF SERVICE: 10/14/2019 SUBJECTIVE: Mr. Arriaza is doing better. He states that his soreness in his sacral area is improving. The compression wraps to his legs is helping. It is to be replaced today. He wants to go get his PET scan tomorrow. His sister is here and she is wondering if he should postpone it and I advised her that I really do not have an issue with him postponing it, but since it is being done at the [facility], we do not know when the next time slot will be and since the patient wants to find out what is going on to make an informed decision this would be the best option. I told her that he is medically as stable as he is going to be for travel. OBJECTIVE: VITAL SIGNS: He is afebrile. Heart rate 81, respirations are 19, oxygen saturation 97% on 4 L, and blood pressure 122/63. CARDIOVASCULAR SYSTEM: S1 and S2 plus. RESPIRATORY SYSTEM: Normal vesicular breath sounds with scattered rhonchi. Decreased air entry in the bases. ABDOMEN: Soft and nontender. Bowel sounds heard in all quadrants. EXTREMITIES: Without cyanosis, clubbing, 2+ edema, which is actually improving with the compression wraps. LABORATORY DATA: H and H are 8.3 and 27.3. Creatinine is 0.74. IMPRESSION: 1. Resolving acute on chronic systolic congestive heart failure. 2. Exacerbation of chronic obstructive pulmonary disease, resolved. 3. Chronic hypoxemic respiratory failure. 4. Atrial fibrillation. 5. Mass in his lung and his kidneys. 6. Benign prostatic hypertrophy. 7. Improving deconditioning. PLAN: 1. Continue current medications. 2. Heart healthy diet. 3. Continue oxygen. 4. Breathing treatments. 5. DVT prophylaxis-he is on Xarelto. 6. Decubitus precaution. 7. Stress ulcer prophylaxis. 8. Continue compression wraps. 9. Routine laboratory values. 10. Physical therapy. 11. Okay to go for PET scan tomorrow. Job ID: [id number]
[2019-10-14 19:30] VITALS: BP 118/56; TEMP 97.5
[2019-10-14] MEDS: Atorvastatin Calcium 20 MG TAB PO SCH (20:41)
[2019-10-14] MEDS: Finasteride 5 MG TAB PO SCH (20:41)
[2019-10-14] MEDS: traZODone HCl 50 MG TAB PO SCH (20:42)
[2019-10-15] MEDS: Potassium Chloride 20 MEQ TAB PO SCH (05:10)
[2019-10-15] MEDS: Aspirin Chewable 81 MG TAB PO SCH (05:11)
[2019-10-15] MEDS: AcetaZOLAMIDE 250 MG TAB PO SCH (05:11)
[2019-10-15] MEDS: Digoxin 0.125 MG TAB PO SCH (05:11)
[2019-10-15] MEDS: Budesonide 0.5 MG/2 ML NEB NEB SCH (05:11)
[2019-10-15] MEDS: predniSONE 20 MG TAB PO SCH (05:12)
[2019-10-15] MEDS: Rivaroxaban 10 MG TAB PO SCH (05:12)
[2019-10-15] MEDS: Furosemide 40 MG TAB PO SCH (05:12)
--- NOTE | 2019-10-16 10:07 | PQF ---
Sebastian Arriaza RANDELL Alamo MD [id number] CLINICAL DOCUMENTATION CLARIFICATION FORM: POST DISCHARGE Addendum to original discharge summary date: ____ Late entry note date: __ DATE:10/16/2019 ATTN:RANDELL GRANGER MD Please exercise your independent, professional judgment in responding to the clarification form. Clinical indicators are provided on the bottom of this form for your review Please check appropriate box(s): Conflicting documentation was noted in the Medical Record, please clarify if patient is being treated/monitored for: [ ] Acute on chronic hypoxic respiratory failure [ x ] Chronic hypoxic respiratory failure [ ] Other diagnosis [ ] Unable to determine For continuity of documentation, please document condition throughout progress notes and discharge summary. Thank You. CLINICAL INDICATORS - SIGNS / SYMPTOMS/ LABS Acute on chronic hypoxic respiratory failure-Documented in H&P on 10/07 by Zahira simpson MD Chronic hypoxic respiratory failure-Documented in PN on 10/12 by Zahira simpson MD Oxygen saturation- 94L-Clinical panels Normal vesicular breath sounds with crakles in the bases and occasional rhonchi- Documented in H&P on 10/07 by Zahira simpson MD COPD exacerbation-Documented in PN on 10/12 by Zahira simpson MD Resolving acute in chronic systolic congestive heart failure-Documented in PN on 10/12 by Zahira simpson MD [id number] panels RISK FACTORS COPD exacerbation-Documented in PN on 10/12 by Zahira simpson MD Resolving acute in chronic systolic congestive heart failure-Documented in PN on 10/12 by Zahira simpson MD TREATMENT Oxygen flow rate 4L Nasal cannula- Clinical panels [employer] Winform Viewer (This form is maintained as a part of the permanent medical record) 2014 [employer]. All Rights Reserved [email or web address] [phone] GURPREET
--- NOTE | 2019-10-17 03:26 | DIS ---
DATE OF ADMISSION: 10/07/2019 DATE OF DISCHARGE: 10/15/2019 PRINCIPAL DIAGNOSIS: Exacerbation of chronic obstructive pulmonary disease. SECONDARY DIAGNOSES: 1. Resolving acute on chronic systolic congestive heart failure. 2. Lung mass, cannot rule out pneumonia. 3. Kidney mass. 4. Atrial fibrillation. 5. Chronic hypoxemic respiratory failure. 6. Metabolic alkalosis. 7. Dyslipidemia. 8. Deconditioning. COMPLICATIONS: None. ADVERSE REACTIONS: None. PROCEDURES: None. CONSULTATIONS: Physical Therapy and Occupational Therapy. HOSPITAL COURSE: The patient was admitted as a transfer here from [facility] in [place]. He was admitted there for respiratory distress and was felt to have exacerbation of COPD and possible acute on chronic combined congestive heart failure. X-ray showed hilar mass 8 cm and they felt that this most likely was cancer and since he was already scheduled for workup with [facility] as an outpatient, nothing more was done. He was treated with antibiotics and steroids and was transferred here with continued antibiotic therapy for physical therapy. He has been slowly improving and no fevers. He was back to his baseline on his oxygen. His leg swelling was slowly improving as well with compression wrapping. He was sent to the [facility] out on pass for his PET scan as we did not want him to miss it and get it postponed. They apparently saw pneumonitis on the PET scan and admitted him to the hospital there. Unfortunately, I do not think Mr. Arriaza or his family inform them that he was admitted as an inpatient here and was on appropriate therapy. Anyway, he is being discharged since he has been admitted there. He is to continue his current medications and he will be followed by the [facility] physicians. PHYSICAL EXAMINATION: VITAL SIGNS: On the day of discharge, he was afebrile, heart rate 100, respirations 97 on 4 L, blood pressure 118/56. CARDIOVASCULAR SYSTEM: S1-S2 plus. RESPIRATORY SYSTEM: Normal vesicular breath sounds with scattered rhonchi and decreased air entry in the bases. ABDOMEN: Soft and nontender. Bowel sounds heard in all quadrants. EXTREMITIES: Without cyanosis or clubbing, 1 to 2+ edema, improving with compression wrapping. MEDICATIONS: He is supposed to be on: 1. Diamox 250 mg p.o. t.i.d. that should be stopped in the next day or two. This started mainly for his metabolic alkalosis. 2. DuoNeb 3 mL q.i.d. 3. Aspirin 81 mg daily. 4. Lipitor 20 mg daily. 5. Pulmicort 0.5 mg via nebulizer b.i.d. 6. Tessalon Perles 100 mg q.6 p.r.n. 7. Digoxin 0.125 daily. 8. Cardizem CD 180 mg daily. 9. Proscar 5 mg daily. 10. Lasix 40 mg b.i.d. 11. Levaquin 500 mg daily. He is to continue until October 16. 12. Melatonin 3 mg at bedtime. 13. Protonix 40 mg daily. 14. Potassium 20 mEq b.i.d. 15. Prednisone 20 mg b.i.d. till October 11 and from to October 15, it was prednisone 20 mg daily, then from October 16 to , it is prednisone 10 mg daily. 16. He has also been on Xarelto 20 mg daily. For full details, please see chart. Job ID: [id number]
[2019-10-17] MEDS ORDERED: predniSONE 20 MG TAB PO SCH (09:00)
== END 2019-10-15 07:00 | disposition short-term general hospital (02) | DRG 190 ==
LOC: NAV ACUTE 17:49
PROVIDERS: ADMIT Internal Medicine; ATTEND Internal Medicine
DX: J44.1 Chronic obstructive pulmonary disease with (acute) exacerbation (principal); J18.9 Pneumonia, unspecified organism; I50.23 Acute on chronic systolic (congestive) heart failure; E87.3 Alkalosis; J96.11 Chronic respiratory failure with hypoxia; E78.5 Hyperlipidemia, unspecified; I48.91 Unspecified atrial fibrillation; Z88.0 Allergy status to penicillin; Z88.8 Allergy status to other drugs, medicaments and biological substances; Z86.718 Personal history of other venous thrombosis and embolism; Z86.711 Personal history of pulmonary embolism; G47.00 Insomnia, unspecified; N40.0 Benign prostatic hyperplasia without lower urinary tract symptoms; D72.829 Elevated white blood cell count, unspecified; T38.0X5A Adverse effect of glucocorticoids and synthetic analogues, initial encounter; R91.8 Other nonspecific abnormal finding of lung field; N28.89 Other specified disorders of kidney and ureter
CPT/HCPCS: 36415; 80048; 80162; 82565; 85014; 85018; 85025; 85049; 94640; J7512; J7620; J7626